=== PATIENT | male | born 1960 | race Caucasian/White ===

== ENCOUNTER 2017-03-06 08:33 | Inpatient (IN) | payer MEDICARE ==
[~2017-03-06] VITALS: Ht 180.3 cm; Wt 92.8 kg
[2017-03-06] VITALS (571 sets, daily range): BP systolic 109–128; BP diastolic 64–99; PULSE 60–73; TEMP 98.1–99.4; O2SAT 87–100
[~2017-03-06 08:33] MED LIST: ANTIBIOTIC; ASPIRIN 32325 MG/TAB PO; CEPHALEXIN500 M1 PO; LIPITOR20 MG PO; NITROSTAT0.4 MG/TAB SL; NORCO 325 MG-51 TAB PO; PERCOCET 325 MG1 TA2 PO; PRILOSEC 20MG20 MG PO; TOPROL XL100 MG; VALIUM 5MG T5 MG/TAB PO; VASOTEC 10M10 MG/TAB PO; ZANAFLEX CAPSULE4 MG PO
[2017-03-06 09:04] LABS: BASO # 0.1 (0.0-0.2); BASO % 0.8 % (0.0-2.0); EOS # 0.2 (0.0-0.7); EOS % 2.9 % (0-4.0); GRAN # 3.7 (1.4-6.5); GRAN % 56.1 % (42.2-75.2); HEMATOCRIT 40.2 % (42.0-52.0); HEMOGLOBIN 13.9 g/dl (13.5-18.0); LYMPH # 1.9 (1.2-3.4); LYMPH % 28.5 % (20.0-51.0); MEAN CELL VOLUME 82 fl (80.0-100.0); MEAN CORPUSCULAR HEMOGLOBIN 28 pg (27.0-31.0); MEAN CORPUSCULAR HGB CONC 35 g/dl (33.0-37.0); MEAN PLATELET VOLUME 10.8 fl (7.4-10.4); MONO # 0.7 (0.1-0.6); MONO % 11.2 % (1.7-9.3); PLATELET COUNT 177 K/mm3 (130-400); RED BLOOD COUNT 4.89 M/mm3 (4.20-5.60); REDCELL DISTRIBUTION WIDTH-CV 13.4 % (11.5-14.5); WHITE BLOOD COUNT 6.5 K/mm3 (4.8-10.8)
[2017-03-06 09:11] LABS: ADJUSTED CALCIUM 9.6 mg/dL (8.4-10.2); ALANINE AMINOTRANSFERASE 44 U/L (21-72); ALBUMIN 4.2 gm/dL (3.5-5.0); ALKALINE PHOSPHATASE 119 U/L (50-136); ANION GAP 15 mmol/L (7-16); BILIRUBIN,TOTAL 0.7 mg/dL (0.0-1.0); BLOOD UREA NITROGEN 16 mg/dL (9-20); CALCIUM 9.8 mg/dL (8.4-10.2); CARBON DIOXIDE 25 mmol/L (22-30); CHLORIDE 101 mmol/L (98-107); CREATININE, serum 1.13 mg/dL (0.66-1.25); GLUCOSE 141 mg/dL (74-106); LIPASE 145 U/L (23-300); POTASSIUM 3.6 mmol/L (3.4-5.0); SODIUM 141 mmol/L (137-145); TOTAL PROTEIN 7.3 gm/dL (6.4-8.2)
[2017-03-06] MEDS ORDERED: ASPIRIN 81M81 MG/TA2 PO (09:12)
[2017-03-06 09:23] LABS: B-TYPE NATRIURETIC PEPTIDE 202 pg/mL (0-125); TROPONIN-I < 0.012 ng/mL (0.000-0.034)
[2017-03-06 12:58] LABS: PROTHROMBIN TIME 11.5 SECONDS (9.7-12.8)
[2017-03-06 13:01] LABS: PARTIAL THROMBOPLASTIN TIME 28.2 SECONDS (26.0-37.0)
[2017-03-06 20:49] LABS: THYROID STIMULATING HORMONE 0.975 uIU/mL (0.465-4.680)
[2017-03-07] VITALS (1174 sets, daily range): BP systolic 109–149; BP diastolic 69–95; PULSE 64–84; TEMP 98.4–99; O2SAT 86–100
[2017-03-07 06:23] LABS: BASO % 0.3 % (0.0-2.0); EOS # 0.2 (0.0-0.7); EOS % 1.8 % (0-4.0); GRAN # 7.3 (1.4-6.5); GRAN % 76.9 % (42.2-75.2); HEMOGLOBIN 12.2 g/dl (13.5-18.0); LYMPH # 1.2 (1.2-3.4); LYMPH % 12.4 % (20.0-51.0); MEAN CELL VOLUME 84 fl (80.0-100.0); MEAN CORPUSCULAR HEMOGLOBIN 28 pg (27.0-31.0); MEAN CORPUSCULAR HGB CONC 34 g/dl (33.0-37.0); MONO # 0.8 (0.1-0.6); MONO % 8.3 % (1.7-9.3); PLATELET COUNT 152 K/mm3 (130-400); REDCELL DISTRIBUTION WIDTH-CV 13.8 % (11.5-14.5); WHITE BLOOD COUNT 9.5 K/mm3 (4.8-10.8)
[2017-03-07 06:25] LABS: HEMATOCRIT 36.3 % (42.0-52.0)
[2017-03-07 06:32] LABS: CALCIUM 9.2 mg/dL (8.4-10.2); CREATININE, serum 1.03 mg/dL (0.66-1.25); MAGNESIUM 1.9 mg/dL (1.6-2.3); POTASSIUM 4.2 mmol/L (3.4-5.0)
[2017-03-07 06:44] LABS: TROPONIN-I 30.9 ng/mL (0.000-0.034)
[2017-03-08] VITALS (596 sets, daily range): BP systolic 128–141; BP diastolic 76–79; PULSE 71–79; TEMP 97.6–99; O2SAT 82–99
[2017-03-08 06:08] LABS: HEMOGLOBIN 12.5 g/dl (13.5-18.0); MEAN CELL VOLUME 83 fl (80.0-100.0); MEAN CORPUSCULAR HEMOGLOBIN 28 pg (27.0-31.0); MEAN CORPUSCULAR HGB CONC 34 g/dl (33.0-37.0); PLATELET COUNT 143 K/mm3 (130-400); RED BLOOD COUNT 4.43 M/mm3 (4.20-5.60); REDCELL DISTRIBUTION WIDTH-CV 13.7 % (11.5-14.5)
[2017-03-08 06:14] LABS: HEMATOCRIT 36.8 % (42.0-52.0)
[2017-03-08 06:18] LABS: CALCIUM 9.2 mg/dL (8.4-10.2); CREATININE, serum 1.07 mg/dL (0.66-1.25)
[2017-03-08] MEDS ORDERED: PLAVIX 75MG TAB75 MG PO (10:08)
[2017-03-08] MEDS ORDERED: LIPITOR 80MG80 MG PO (10:08)
[2017-03-08] MEDS ORDERED: IMDUR 30MG30 MG/TAB PO (10:09)
[2017-03-08] MEDS ORDERED: NIACOR500 MG PO (10:09)
== END 2017-03-08 12:30 | disposition home or self-care (01) | DRG 247 ==
LOC: COL.ER 08:33 → ICU 10:31 → COL.ER 10:31 → ICU 10:31 → IMCU 20:18
PROVIDERS: Emergency Medicine; Internal Medicine; Internal Medicine Interventional Cardiology
PROC: 027135Z Dilation of Coronary Artery, Two Arteries with Two Drug-eluting Intraluminal Devices, Percutaneous Approach (ICD-10-PCS; principal; 2017-03-07)
PROC: B2111ZZ Fluoroscopy of Multiple Coronary Arteries using Low Osmolar Contrast (ICD-10-PCS; 2017-03-07)
PROC: B2151ZZ Fluoroscopy of Left Heart using Low Osmolar Contrast (ICD-10-PCS; 2017-03-07)
DX: I21.4 Non-ST elevation (NSTEMI) myocardial infarction (principal); I50.22 Chronic systolic (congestive) heart failure; I11.0 Hypertensive heart disease with heart failure; I25.110 Atherosclerotic heart disease of native coronary artery with unstable angina pectoris; Z95.5 Presence of coronary angioplasty implant and graft; Z95.810 Presence of automatic (implantable) cardiac defibrillator; K21.9 Gastro-esophageal reflux disease without esophagitis
CPT/HCPCS: 99232-AI; 99239; C1725; C1760; C1769; C1874; C9600; G0378; J0583; J1327; J1644; J2250; J2270; J2550; J3010; J7030; Q9967

== ENCOUNTER 2017-06-09 11:39 | Outpatient (RCR) | payer MEDICARE ==
[~2017-06-09 11:39] MED LIST changes: +ASPIRIN 81M81 MG/TA2 PO; +IMDUR 30MG30 MG/TAB PO; +LIPITOR 80MG80 MG PO; +NIACOR500 MG PO; +PLAVIX 75MG TAB75 MG PO
== END 2017-06-22 | disposition home or self-care (01) ==
LOC: COL.CR
DX: Z48.812 Encounter for surgical aftercare following surgery on the circulatory system (principal); I21.4 Non-ST elevation (NSTEMI) myocardial infarction

== ENCOUNTER 2018-09-15 19:02 | Emergency (ER) | payer MEDICARE ==
[~2018-09-15] VITALS: Ht 180.3 cm; Wt 90.9 kg
[2018-09-15 19:13] VITALS: TEMP 98.4
[2018-09-15 19:43] LABS: BASO # 0.1 (0.0-0.2); EOS # 0.2 (0.0-0.7); EOS % 3.4 % (0-4.0); GRAN # 2.9 (1.4-6.5); GRAN % 55.1 % (42.2-75.2); HEMOGLOBIN 12.5 g/dl (13.5-18.0); LYMPH # 1.5 (1.2-3.4); MEAN CELL VOLUME 80 fl (80.0-100.0); MEAN CORPUSCULAR HEMOGLOBIN 27 pg (27.0-31.0); MEAN CORPUSCULAR HGB CONC 34 g/dl (33.0-37.0); MEAN PLATELET VOLUME 10.3 fl (7.4-10.4); MONO # 0.6 (0.1-0.6); MONO % 11.3 % (1.7-9.3); PLATELET COUNT 142 K/mm3 (130-400); RED BLOOD COUNT 4.56 M/mm3 (4.20-5.60); REDCELL DISTRIBUTION WIDTH-CV 13.7 % (11.5-14.5)
[2018-09-15] MEDS ORDERED: ENTRESTO 97 MG1 EACH PO (19:45)
[2018-09-15] MEDS ORDERED: LANOXIN 0.25M0.25 MG PO (19:45)
[2018-09-15 19:49] LABS: PROTHROMBIN TIME 11.1 SECONDS (9.7-12.8)
[2018-09-15 19:51] LABS: HEMATOCRIT 36.6 % (42.0-52.0)
[2018-09-15 19:52] LABS: PARTIAL THROMBOPLASTIN TIME 31.1 SECONDS (26.0-37.0)
[2018-09-15 20:04] LABS: ALBUMIN 3.9 gm/dL (3.5-5.0); BILIRUBIN,TOTAL 0.2 mg/dL (0.0-1.0); CREATININE, serum 0.92 mg/dL (0.66-1.25); POTASSIUM 3.9 mmol/L (3.4-5.0); TOTAL PROTEIN 7.4 gm/dL (6.4-8.2)
[2018-09-15 20:14] LABS: TROPONIN-I 0.017 ng/mL (0.000-0.034)
[2018-09-15 22:27] VITALS: BP 133/82
[2018-09-15 22:36] VITALS: PULSE 76
== END 2018-09-15 22:47 | disposition short-term general hospital (02) ==
LOC: COL.ER 19:02 → MEDICAL 19:47
PROVIDERS: Family Medicine
DX: R55 Syncope and collapse (principal); I25.10 Atherosclerotic heart disease of native coronary artery without angina pectoris; I42.9 Cardiomyopathy, unspecified; I50.9 Heart failure, unspecified; I49.01 Ventricular fibrillation; I49.9 Cardiac arrhythmia, unspecified; Z79.02 Long term (current) use of antithrombotics/antiplatelets; Z98.890 Other specified postprocedural states; Z79.82 Long term (current) use of aspirin
CPT/HCPCS: J0282; J7060

== ENCOUNTER 2018-09-27 11:26 | Day surgery (SDC) | payer MEDICARE ==
[~2018-09-27] VITALS: Ht 180.3 cm; Wt 87.5 kg
[~2018-09-27 11:26] MED LIST changes: +ENTRESTO 97 MG1 EACH PO; +LANOXIN 0.25M0.25 MG PO
[2018-09-27 12:00] LABS: HEMATOCRIT 40.5 % (42.0-52.0); HEMOGLOBIN 13.7 g/dl (13.5-18.0); MEAN CELL VOLUME 80 fl (80.0-100.0); MEAN CORPUSCULAR HEMOGLOBIN 27 pg (27.0-31.0); MEAN CORPUSCULAR HGB CONC 34 g/dl (33.0-37.0); MEAN PLATELET VOLUME 10.7 fl (7.4-10.4); PLATELET COUNT 190 K/mm3 (130-400); RED BLOOD COUNT 5.06 M/mm3 (4.20-5.60); REDCELL DISTRIBUTION WIDTH-CV 13.7 % (11.5-14.5)
[2018-09-27 12:06] LABS: PROTHROMBIN TIME 11.5 SECONDS (9.7-12.8)
[2018-09-27 12:16] LABS: CALCIUM 9.7 mg/dL (8.4-10.2); CREATININE, serum 0.93 mg/dL (0.66-1.25); POTASSIUM 4.6 mmol/L (3.4-5.0)
[2018-09-27 12:24] VITALS: BP 128/72; PULSE 72; TEMP 97.9
[2018-09-27] MEDS ORDERED: CRESTOR 10MG10 MG PO (12:32)
[2018-09-27] MEDS ORDERED: PLAVIX 75MG TAB75 MG PO (12:39)
[2018-09-27] MEDS ORDERED: LANOXIN 0.25M0.25 MG PO (12:39)
[2018-09-27] MEDS ORDERED: KRILL OIL 3001 EACH PO (12:41)
[2018-09-27 13:07] VITALS: BP 119/71; PULSE 72
== END 2018-09-27 14:44 | disposition home or self-care (01) ==
LOC: COL.CAR 11:26
PROVIDERS: Internal Medicine Interventional Cardiology
DX: I49.01 Ventricular fibrillation (principal); Z53.9 Procedure and treatment not carried out, unspecified reason; I50.22 Chronic systolic (congestive) heart failure; Z90.2 Acquired absence of lung [part of]; Z79.82 Long term (current) use of aspirin; Z79.899 Other long term (current) drug therapy; I25.2 Old myocardial infarction; I10 Essential (primary) hypertension; E78.5 Hyperlipidemia, unspecified; I25.10 Atherosclerotic heart disease of native coronary artery without angina pectoris; G47.33 Obstructive sleep apnea (adult) (pediatric); Z95.810 Presence of automatic (implantable) cardiac defibrillator

== ENCOUNTER 2019-08-24 20:20 | Inpatient (IN) | payer MEDICARE ==
[~2019-08-24] VITALS: Ht 180.3 cm; Wt 81.8 kg
[~2019-08-24 20:20] MED LIST changes: +CRESTOR 10MG10 MG PO; +KRILL OIL 3001 EACH PO; +PROTONIX20 MG PO; -TOPROL XL100 MG; +TOPROL XL100 MG PO
[2019-08-24 20:54] LABS: BASO % 0.5 % (0.0-2.0); EOS # 0.1 (0.0-0.7); EOS % 1.4 % (0-4.0); GRAN # 5.9 (1.4-6.5); GRAN % 68.7 % (42.2-75.2); HEMOGLOBIN 12.4 g/dl (13.5-18.0); LYMPH # 1.8 (1.2-3.4); LYMPH % 20.8 % (20.0-51.0); MEAN CELL VOLUME 81 fl (80.0-100.0); MEAN CORPUSCULAR HEMOGLOBIN 27 pg (27.0-31.0); MEAN CORPUSCULAR HGB CONC 34 g/dl (33.0-37.0); MEAN PLATELET VOLUME 10.7 fl (7.4-10.4); MONO # 0.7 (0.1-0.6); MONO % 8.3 % (1.7-9.3); PLATELET COUNT 188 K/mm3 (130-400); RED BLOOD COUNT 4.52 M/mm3 (4.20-5.60); REDCELL DISTRIBUTION WIDTH-CV 13.6 % (11.5-14.5)
[2019-08-24 20:59] LABS: ALBUMIN 4.4 gm/dL (3.5-5.0); BILIRUBIN,TOTAL 0.3 mg/dL (0.0-1.0); CALCIUM 9.7 mg/dL (8.4-10.2); CREATININE, serum 1.09 (0.66-1.25); TOTAL PROTEIN 7.8 gm/dL (6.4-8.2)
[2019-08-24 21:09] LABS: HEMATOCRIT 36.5 % (42.0-52.0)
[2019-08-24 21:10] LABS: TROPONIN-I 0.017 ng/mL (0.000-0.035)
[2019-08-24 21:12] LABS: PROTHROMBIN TIME 11.8 SECONDS (9.7-12.8)
[2019-08-24] MEDS ORDERED: TOPROL XL 25MG25 MG PO (23:01)
--- NOTE | 2019-08-24 23:15 | NUR ---
Patient arrived to the unit via wheelchair [id number] Accompanied by his . Denies pain at this time except for his IV site. Upon inspection, appears to not be infiltrated. Patient denies wanting a new IV site placed. Initial assessment and med rec completed. Patient seen by SUZETTE Arreguin. Patient given a sandwich box to eat prior to being NPO at 0000. NS infusing at 30 ml/hr to begin at 0000. Patient denies any further needs at this time. Call light within reach.
[2019-08-25] VITALS (305 sets, daily range): BP systolic 93–130; BP diastolic 50–77; PULSE 65–76; TEMP 97.6–98.9; O2SAT 87–100
[2019-08-25 01:05] LABS: MAGNESIUM 2.2 mg/dL (1.6-2.3)
[2019-08-25 01:14] LABS: PROTHROMBIN TIME 11.6 SECONDS (9.7-12.8)
[2019-08-25 01:16] LABS: TROPONIN-I 3 HR POST INITIAL 0.028 ng/mL (0.000-0.034)
--- NOTE | 2019-08-25 06:09 | NUR ---
Patient had uneventful night. Resting in bed watching TV. No complaints of pain. Consent signed. Call light within reach.
[2019-08-25 06:59] LABS: BASO % 0.7 % (0.0-2.0); EOS # 0.1 (0.0-0.7); EOS % 2.5 % (0-4.0); GRAN # 2.9 (1.4-6.5); GRAN % 52.6 % (42.2-75.2); LYMPH # 1.9 (1.2-3.4); LYMPH % 33.6 % (20.0-51.0); MEAN CELL VOLUME 82 fl (80.0-100.0); MEAN CORPUSCULAR HEMOGLOBIN 28 pg (27.0-31.0); MEAN CORPUSCULAR HGB CONC 34 g/dl (33.0-37.0); MEAN PLATELET VOLUME 11.1 fl (7.4-10.4); MONO # 0.6 (0.1-0.6); MONO % 10.2 % (1.7-9.3); PLATELET COUNT 161 K/mm3 (130-400); RED BLOOD COUNT 4.37 M/mm3 (4.20-5.60); REDCELL DISTRIBUTION WIDTH-CV 13.7 % (11.5-14.5)
[2019-08-25 07:01] LABS: HEMATOCRIT 35.6 % (42.0-52.0)
--- NOTE | 2019-08-25 07:08 | NUR ---
Report given to JOSH White
[2019-08-25 07:12] LABS: ALBUMIN 3.9 gm/dL (3.5-5.0); BILIRUBIN,TOTAL 0.2 mg/dL (0.0-1.0); CALCIUM 9.2 mg/dL (8.4-10.2); CHOLESTEROL RISK RATIO 4.8; CREATININE, serum 1.04 (0.66-1.25); POTASSIUM 3.9 mmol/L (3.4-5.0); TOTAL PROTEIN 7.1 gm/dL (6.4-8.2)
[2019-08-25 07:23] LABS: TROPONIN-I 0.028 ng/mL (0.000-0.035)
--- NOTE | 2019-08-25 11:00 | NUR ---
patient going down for heart cath at this time, present
--- NOTE | 2019-08-25 11:40 | NUR ---
SEE MERGE REPORT FOR MEDICATION ADMINISTRATION TIMES WELL INTRA/POST SEDATION ASSESSMENTS. PLAN TO GO RIGHT FEMORAL ACCESS PER PT.
--- NOTE | 2019-08-25 12:37 | NUR ---
RECIEVED REPORT FROM KARSON IN DIRECTOR OCCUPATIONAL.
--- NOTE | 2019-08-25 12:56 | NUR ---
Pt transferred to ICU 2 via bed with Zoll monitor. Bedside report to Cherie MORENO.
--- NOTE | 2019-08-25 12:57 | NUR ---
PT BROUGHT OVER FROM [facility] [employer] VIA BED BY KARSON MORENO. PT AWAKE, ALERT AND ORIENTED. SLIGHTLY DROWSY. PT DENIES ANY SOB OR PAIN AT THIS TIME. RIGHT FEM SITE CLEAN DRY INTACT.
--- NOTE | 2019-08-25 13:44 | NUR ---
Patient transferred to ICU afte PCI in heart cath, I have called report to JOSH Crespo
--- NOTE | 2019-08-25 16:28 | NUR ---
PT'S FLAT TIME COMPLETE.
[2019-08-26] VITALS (408 sets, daily range): BP systolic 95–115; BP diastolic 59–64; PULSE 77–80; TEMP 97.8–98.3; O2SAT 87–99
[2019-08-26 05:05] LABS: BASO % 0.4 % (0.0-2.0); EOS # 0.1 (0.0-0.7); EOS % 1.3 % (0-4.0); GRAN # 5.3 (1.4-6.5); GRAN % 70.6 % (42.2-75.2); HEMOGLOBIN 11.7 g/dl (13.5-18.0); LYMPH # 1.4 (1.2-3.4); LYMPH % 18.4 % (20.0-51.0); MEAN CELL VOLUME 81 fl (80.0-100.0); MEAN CORPUSCULAR HEMOGLOBIN 27 pg (27.0-31.0); MEAN CORPUSCULAR HGB CONC 34 g/dl (33.0-37.0); MEAN PLATELET VOLUME 10.7 fl (7.4-10.4); MONO # 0.7 (0.1-0.6); PLATELET COUNT 143 K/mm3 (130-400); RED BLOOD COUNT 4.29 M/mm3 (4.20-5.60); REDCELL DISTRIBUTION WIDTH-CV 13.7 % (11.5-14.5)
[2019-08-26 05:08] LABS: HEMATOCRIT 34.8 % (42.0-52.0)
[2019-08-26 05:16] LABS: CALCIUM 9.1 mg/dL (8.4-10.2); CREATININE, serum 0.98 (0.66-1.25); POTASSIUM 4.1 mmol/L (3.4-5.0)
--- NOTE | 2019-08-26 09:09 | NUR ---
Report received from Talon MORENO and care resumed. Pt resting upon assessment. Wakes to speech and answers questions appropriately. VSS. Denies any pain. AM meds given and helped pt order breakfast. Dr Ochoa here to see pt at this time. Plan will be for discharge to home. Will continue to follow.
--- NOTE | 2019-08-26 10:17 | NUR ---
Dr Ramesh in to see pt at this time.
[2019-08-26] MEDS ORDERED: TOPROL XL 25MG25 MG PO (10:36)
[2019-08-26] MEDS ORDERED: TOPROL XL100 MG PO (10:36)
[2019-08-26] MEDS ORDERED: BRILINTA90 MG PO (10:44)
--- NOTE | 2019-08-26 11:07 | NUR ---
PT GIVEN DISCHARGE INSTRUCTIONS AND TAKEN OUT BY WHEELCHAIR AT THIS TIME.
== END 2019-08-26 11:09 | disposition home or self-care (01) | DRG 247 ==
LOC: COL.ER 20:20 → MEDICAL 21:46 → ICU 08-25 13:17
PROVIDERS: Emergency Medicine; Internal Medicine Interventional Cardiology; Nurse Practitioner Family; ADMIT Student in an Organized Health Care Education/Training Program
PROC: 4A023N7 Measurement of Cardiac Sampling and Pressure, Left Heart, Percutaneous Approach (ICD-10-PCS; principal; 2019-08-25)
PROC: 027134Z Dilation of Coronary Artery, Two Arteries with Drug-eluting Intraluminal Device, Percutaneous Approach (ICD-10-PCS; 2019-08-25)
PROC: B2111ZZ Fluoroscopy of Multiple Coronary Arteries using Low Osmolar Contrast (ICD-10-PCS; 2019-08-25)
DX: I25.110 Atherosclerotic heart disease of native coronary artery with unstable angina pectoris (principal); I50.22 Chronic systolic (congestive) heart failure; Z95.5 Presence of coronary angioplasty implant and graft; Z95.0 Presence of cardiac pacemaker; I42.8 Other cardiomyopathies; I10 Essential (primary) hypertension; E78.5 Hyperlipidemia, unspecified; K21.9 Gastro-esophageal reflux disease without esophagitis; Z88.8 Allergy status to other drugs, medicaments and biological substances
CPT/HCPCS: 99222-AI; C9600; G0378; J0583; J1644; J1650; J2250; J3010; J7030; Q9967

== ENCOUNTER → 2024-06-02 | Outpatient (CLI) | payer MEDICARE ==
[~2024-06-02] MED LIST changes: +BRILINTA90 MG PO; +TOPROL XL 25MG25 MG PO
[2024-06-02 12:42] LABS: CALCIUM 10.2 mg/dL (8.4-10.2); CREATININE, serum 1.11 mg/dL (0.72-1.25)
[2024-06-02 12:49] LABS: TROPONIN-I 0.029 ng/mL (0.00-0.033)
== END ==
LOC: COL.LAB 12:04
PROVIDERS: Internal Medicine Interventional Cardiology
DX: I50.22 Chronic systolic (congestive) heart failure (principal); I25.10 Atherosclerotic heart disease of native coronary artery without angina pectoris